=== PATIENT | male | born 1990 | race Two or more races ===

== ENCOUNTER 2022-09-16 03:15 | Emergency (ER) | payer OTHER ==
[~2022-09-16] VITALS: Ht 185.4 cm; Wt 90.7 kg
--- NOTE | 2022-09-16 03:30 | NUR ---
BIB SISTER FOR WOKE UP WITH MID-STERNAL CP 810 AN HOUR AGO. PATIENT IS AAOX4. ABLE TO MAKE NEEDS KNOWN. PER PT, HE WAS TAKING METAMUCIL FOR A WEEK PER ADVICED BY HIS DOCTOR. CHANGED TO [facility]. ATTACHED TO MONITOR. VITALS CHECKED.
--- NOTE | 2022-09-16 03:35 | NUR ---
EKG DONE AT BEDSIDE
--- NOTE | 2022-09-16 03:42 | NUR ---
Nilay sweeney in ED - 09/16/22 at 0342 by JERRY IV CANNULA G20 INSERTED ON RIGHT AC. BLOOD DRAWN AND SENT TO LAB
--- NOTE | 2022-09-16 03:42 | NUR ---
20g iv established at [facility]. blood drawn and sent to lab
[2022-09-16] MEDS ORDERED: diphenhydrAMINE HCL 50 MG/ML VIAL ONE (04:00)
[2022-09-16] MEDS ORDERED: ASPIRIN 81 MG TAB.CHEW PO ONE (04:00)
[2022-09-16] MEDS ORDERED: diphenhydrAMINE HCL 50 MG/ML VIAL IV ONE (04:00)
[2022-09-16] MEDS ORDERED: ASPIRIN 81 MG TAB.CHEW ONE (04:01)
[2022-09-16 04:10] LABS: BASOPHILS # (AUTO) 0.1 K/uL (0.0-0.2); BASOPHILS % (AUTO) 0.8 % (0.0-2.0); EOSINOPHILS % (AUTO) 4.2 % (0.0-6.0); HEMATOCRIT 42 % (39-51); HEMOGLOBIN 14.3 g/dL (13.5-17.5); LYMPHOCYTES # (AUTO) 2.9 K/uL (0.8-4.8); LYMPHOCYTES % (AUTO) 45.9 % (20.0-44.0); MEAN CORPUSCULAR HGB CONC 34 g/dl (31.0-36.0); MEAN CORPUSCULAR VOLUME 86 fL (80-96); MONOCYTES # (AUTO) 0.4 K/uL (0.1-1.30); MONOCYTES % (AUTO) 6.8 % (2.0-12.0); NEUTROPHILS # (AUTO) 2.7 K/uL (1.8-8.9); NEUTROPHILS % (AUTO) 42.3 % (43.0-81.0); PLATELET COUNT (AUTO) 198 K/uL (150-450); RED BLOOD CELL COUNT(AUTO) 4.92 MIL/uL (4.5-6.0); WHITE BLOOD COUNT (AUTO) 6.4 K/uL (4.3-11.0)
[2022-09-16 06:01] LABS: CALCIUM, SERUM 8.6 mg/dL (8.5-10.1); CARBON DIOXIDE 31 mmol/L (21-32); CHLORIDE 105 mmol/L (98-107); CREATININE 1.1 mg/dL (0.6-1.3); POTASSIUM 3.5 mmol/L (3.5-5.1); SODIUM SERUM 140 mmol/L (136-145); UREA NITROGEN, BLOOD 15 mg/dL (7-18)
[2022-09-16 06:58] LABS: GLUCOSE 95 mg/dL (74-106)
[2022-09-16] MEDS ORDERED: IBUP-1953 PO (08:13)
[2022-09-16] MEDS ORDERED: CLOT15CR5 TP (08:13)
--- NOTE | 2022-09-16 08:14 | NUR ---
CALLED LAB FOR 2ND TROPONIN RESULT UPDATE
--- NOTE | 2022-09-16 08:30 | NUR ---
IV removed. Catheter intact and site benign. Pressure and 4x4 applied to site. No bleeding noted.
--- NOTE | 2022-09-16 08:32 | NUR ---
IV removed. Catheter intact and site benign. Pressure and 4x4 applied to site. No bleeding noted.Patient discharged to home in stable condition. Written and verbal after care instructions given. Patient verbalizes understanding of instruction.
[2022-09-16 08:33] VITALS: BP 128/74
== END 2022-09-16 08:33 | disposition home or self-care (01) ==
LOC: ER 03:18
DX: R07.89 Other chest pain (principal); L50.9 Urticaria, unspecified
CPT/HCPCS: 99285; 96374; 71045; 93005 ×2; 85025; 80048; 36415; 84484 ×2; J1200